=== PATIENT | male | born 1990 | race Two or more races ===

== ENCOUNTER 2018-01-29 13:53 | Emergency (ER) | payer OTHER ==
[2018-01-29] MEDS ORDERED: MORPHINE SULFATE 10 MG/ML SOL ONE (14:28)
[2018-01-29] MEDS ORDERED: MORPHINE SULFATE 10 MG/ML SOL IV ONE (14:31)
[2018-01-29 14:42] LABS: BASOPHILS % (AUTO) 2 % (0-3); EOSINOPHILS % (AUTO) 4 % (0-9); HEMATOCRIT 48 % (39-53); HEMOGLOBIN 15.4 gm/dl (13.5-17.7); LYMPHOCYTES % (AUTO) 31.5 % (10-50); MEAN CORPUSCULAR HEMOGLOBIN 26.9 pg (27.0-32.0); MEAN CORPUSCULAR HGB CONC 32.4 gm/dl (32.0-36.0); MEAN CORPUSCULAR VOLUME 83 fL (80-100); MONOCYTES % (AUTO) 7.7 % (0-12); NEUTROPHILS % (AUTO) 55.2 % (37-80)
[2018-01-29 14:49] VITALS: RESP 20; TEMP 97
[2018-01-29 14:50] LABS: ALBUMIN 4.1 gm/dl (3.4-5.0); BILIRUBIN,TOTAL 0.3 mg/dl (0.2-1.0); CALCIUM 9.5 mg/dl (8.5-10.1); CARBON DIOXIDE 28.8 mEq/L (21-32); CREATININE 1.08 mg/dl (0.80-1.30); POTASSIUM 3.8 mMol/L (3.5-5.1); TOTAL PROTEIN 8.2 gm/dl (6.4-8.2)
[2018-01-29 14:59] LABS: INR 0.99 (0.86-1.12)
[2018-01-29] MEDS ORDERED: SODIUM CHLORIDE 0.9% 1000 ML SOL IV SCH (15:00)
[2018-01-29 16:15] VITALS: BP 126/84; PULSE 89; O2SAT 97
[2018-01-29] MEDS ORDERED: IBUPROFEN 400 MG TAB ONE (16:53)
[2018-01-29] MEDS ORDERED: ACETAMINOPHEN 500 MG 500 MG TAB ONE (16:53)
[2018-01-29] MEDS ORDERED: ACETAMINOPHEN 500 MG 500 MG TAB PO ONE (16:55)
[2018-01-29] MEDS ORDERED: IBUPROFEN 600 MG TAB PO ONE (16:55)
== END 2018-01-29 17:00 | disposition home or self-care (01) | DRG 556 ==
LOC: ED 13:53
DX: M79.18 Myalgia, other site (principal); V59.49XA Driver of pick-up truck or van injured in collision with other motor vehicles in traffic accident, initial encounter; Y92.413 State road as the place of occurrence of the external cause; Y93.9 Activity, unspecified; Y99.9 Unspecified external cause status
CPT/HCPCS: 70450; 71260; 72125; 73501; 73560; 73600; 74177; 80053; 85025; 85610; 85730; 93005; 96374; 99284; 99285; G0390; J2270; Q9967; A9270-GY